=== PATIENT | female | born 1960 | race Two or more races ===

== ENCOUNTER → 2018-12-04 | Outpatient (CLI) | LOC: YHH 15:33 ==

== ENCOUNTER 2019-11-16 23:14 | Inpatient (IN) | payer OTHER ==
[2019-11-16 23:46] VITALS: BMI 26.2
[2019-11-17] MEDS ORDERED: LACTATED RINGERS SOLUTION 1000 ML INFUS.BAG IV ONE (00:40)
--- NOTE | 2019-11-17 01:19 | PDOC ---
History of Present Illness - General Chief Complaint: Rectal Bleed Stated Complaint: HEMMORHAGE Time Seen by Provider: 11/17/19 00:19 History Source: Patient Exam Limitations: No Limitations - History of Present Illness Initial Comments: 11/17/19 01:18 HPI: This is a 59 y/o male on ASA/Plavix with a PMH of HIV (undetectable), rectal cancer (s/p radiation/chemo 2016), and a CVA with left carotid endarterectomy on October 20 presenting to the ED due to rectal bleeding that began 3 hours ago. He was laying in bed when he felt something wet underneath him. He got up to go to the bathroom, and saw blood dripping down his leg. He said that he lost about a cup of blood prior to coming to the ED. He had a similar episode on November 01 where he had large amounts of bleeding which stopped on it's own. He never followed up with anyone about it. The patient denies any lightheadedness, palpations, chest pain, SOB, abdominal pain. ROS: GENERAL/CONSTITUTIONAL: No fever/chills. No weakness. HEAD, EYES, EARS, NOSE AND THROAT: No change in vision. No blurry vision. CARDIOVASCULAR: No chest pain or shortness of breath. RESPIRATORY: No cough, wheezing, or hemoptysis. GASTROINTESTINAL: No nausea, vomiting Yes active bright red blood per rectum MUSCULOSKELETAL: No joint or muscle swelling or pain. No neck or back pain. NEUROLOGIC: No headache, vertigo, loss of consciousness, or change in strength/sensation. HEMATOLOGIC/LYMPHATIC: On ASA and Plavix ALLERGIC/IMMUNOLOGIC: No hives or skin allergy. PMH: HIV (undetectable), Rectal cancer (s/p radiation/chemo 2016), CVA (October 2019) PSx: Left carotid endarterectomy ([facility], October 2019) Meds: See nurse note Allergies: KNDA PE: GENERAL: Awake, alert, and fully oriented, in no acute distress. Laying in bed, able to speak in full sentences. Non-toxic appearing. HEAD: No signs of trauma EYES: PERRLA, EOMI, sclera anicteric ENT: Moist mucosa NECK: Normal ROM, supple, no lymphadenopathy, JVD, or masses LUNGS: Breath sounds equal, clear to auscultation bilaterally. No wheezes, and no crackles HEART: Regular rate and rhythm, normal S1 and S2, no murmurs, rubs or gallops. Capillary refill < 3 seconds. ABDOMEN: Soft, nontender, normoactive bowel sounds. No guarding, no rebound. No masses EXTREMITIES: Normal range of motion, no edema. No clubbing or cyanosis. NEUROLOGICAL: Cranial nerves II through XII grossly intact. Slurred speech (residual from stroke) RECTAL: No obvious masses or lesions. Not actively bleeding. Shaq underneath patient with bright red blood and clots MDM: This is a 59 y/o male on ASA/Plavix with a PMH of HIV (undetectable), rectal cancer (s/p radiation/chemo 2016), and a CVA with left carotid endarterectomy on October 20 presenting to the ED due to rectal bleeding that began 3 hours ago. - Denies inciting traumatic event - Patient is anti-coagulated with Plavix and ASA - Patient is hemodynamically stable, BP 145/91 - AAOx4 - Not currently with active bleeding from rectum - Will check labs, transfuse if needed - Pt will need admit - CBC - CMP - PT/INR - Type and screen - EKG - 1L fluids 11/17/19 02:34 - Hb 10.5 - INR 1.2 11/17/19 02:41 - Patient remained hemodynamically stable during ED visit. No transfusion necessary at this time - Pt admitted to med/surg Past History - Medical History Allergies/Adverse Reactions: Allergies Allergy/AdvReac Type Severity Reaction Status Date / Time sulfamethoxazole AdvReac Itching Verified 11/17/19 05:58 [From Bactrim] trimethoprim [From Bactrim] AdvReac Itching Verified 11/17/19 05:58 Home Medications: Ambulatory Orders Aspirin [ASA -] 81 mg PO DAILY 11/17/19 Clopidogrel Bisulfate [Plavix] 75 mg PO DAILY 11/17/19 Docusate Sodium [Colace] 100 mg PO DAILY 11/17/19 Elviteg/Cob/Emtri/Tenof Alafen [Genvoya (Non-Formulary)] 1 each PO DAILY 11/01 09/20 Sennosides [Senna] 8.6 mg PO HS 11/17/19 - Psycho-Social/Smoking History Smoking History: Unknown if ever smoked *Physical Exam - Vital Signs Last Vital Signs Temp Pulse Resp BP Pulse Ox 99.5 F 113 H 20 145/91 98 11/16/19 23:35 11/16/19 23:35 11/16/19 23:35 11/16/19 23:35 11/16/19 23:35 Heart Score/ECG Review - ECG Intrepretation Comment:: 11/17/19 01:[address] elevations or T-wave inversions Vent rate 95bpm, MA interval 124ms, QRS 124ms, Prolonged QT/QTc 400/502ms PVCs 11/17/19 02:00 ED Treatment Course - LABORATORY CBC & Chemistry Diagram: 11/17/19 09:08 11/17/19 09:08 Discharge - Discharge Information Problems reviewed: Yes Clinical Impression/Diagnosis: Rectal hemorrhage Condition: Stable - Admission Yes - Follow up/Referral - Patient Discharge Instructions - Post Discharge Activity
--- NOTE | 2019-11-17 01:41 | PDOC ---
Documentation entered by Gregorio Vieyra SCRIBE, acting as scribe for Jason Zepeda MD. Jason Zepeda MD: This documentation has been prepared by the Azalia santos Xhesika, SCRIBE, under my direction and personally reviewed by me in its entirety. I confirm that the documentation accurately reflects all work, treatment, procedures, and medical decision making performed by me. Attending Attestation - Resident Resident Name: Brit Todd - ED Attending Attestation I have performed the following: I have examined & evaluated the patient, The case was reviewed & discussed with the resident, I agree w/resident's findings & plan, Exceptions are as noted - HPI HPI: 11/17/19 01:24 The patient is a 59 year old male with a significant PMH of HIV (VL undetectable), rectal cancer (s/p radiation/chemo 2016), and a CVA with left carotid endarterectomy(10/21/19) who presents to the emergency department for rectal bleeding. Pt states at around 10:30PM, he went to bed, "felt something wet underneath him," went to the restroom and noticed blood dripping down his leg. Pt states he lost one cup of blood. Pt states he had a similar episode on 11/02/19 but symptoms resolved on their own. Pt states he is on ASA/Plavix. The patient denies chest pain, shortness of breath, headache and dizziness. Denies fever, chills, cough, nausea, vomiting, diarrhea and constipation. Denies dysuria, frequency, urgency and hematuria. Allergies: NKDA - Physicial Exam PE: 11/17/19 01:42 See resident exam - Medical Decision Making 11/17/19 01:42 59 M with hematochezia, on ASA and plavix. - Labs, coags, T&S - Transfuse if needed - Admit Discharge - Discharge Information Problems reviewed: Yes Clinical Impression/Diagnosis: Rectal hemorrhage Condition: Stable - Follow up/Referral - Patient Discharge Instructions - Post Discharge Activity
[2019-11-17 01:42] LABS: BASO % 0.6 % (0-2.0); EOS % 0.1 % (0-4.5); HEMATOCRIT 31.4 % (35.4-49); HEMOGLOBIN 10.5 GM/dL (11.7-16.9); LYMPH % 16.7 % (8-40); MCH 32.2 pg (25.7-33.7); MCHC 33.3 g/dl (32.0-35.9); MEAN CELL VOLUME 96.8 fl (80-96); MEAN PLT VOLUME 9.2 fl (7.5-11.1); MONO % 6.6 % (3.8-10.2); PLATELET COUNT 222 K/MM3 (134-434); RBC 3.24 M/mm3 (4.00-5.60); RDW 13.8 % (11.9-15.9); WHITE BLOOD COUNT 9.1 K/mm3 (4.0-10.0)
[2019-11-17 01:50] LABS: INR 1.2 (0.83-1.09); PROTHROMBIN TIME (PATIENT) 14.2 SEC (9.7-13.0)
[2019-11-17 01:57] LABS: ALBUMIN 3.3 g/dl (3.4-5.0); BILIRUBIN,TOTAL 0.3 mg/dL (0.2-1); BLOOD UREA NITROGEN 15.6 mg/dL (7-18); CALCIUM 9.1 mg/dL (8.5-10.1); POTASSIUM 3.5 mmol/L (3.5-5.1)
[2019-11-17 02:32] LABS: MAGNESIUM 1.9 mg/dL (1.8-2.4)
--- NOTE | 2019-11-17 03:48 | PN ---
Teaching Attending Note Name of Resident: Rivera Feliz ATTENDING PHYSICIAN STATEMENT I saw and evaluated the patient. I reviewed the resident's note and discussed the case with the resident. I agree with the resident's findings and plan as documented. SUBJECTIVE: Patient is a 59 year old man with a PMH of HIV disease (undetectable viral load), Rectal cancer (s/p radiation/chemotherapy 2016), Recent right hip replacement, CVA (residual slurred speech; on Aspirin/Plavix) and Left carotid endarterectomy on October 20 presenting to the ER due to rectal bleeding that began 3 hours prior to arrival. He was laying in bed when he felt something wet underneath him. He got up to go to the bathroom, and saw blood dripping down his leg. He said that he lost about a cup of blood prior to coming to the ED. He had a similar episode on November 01 where he had large amounts of bleeding which stopped on it's own. He never followed up with anyone about it. On HAART but does'nt remember the name. Patient denies chest pain, shortness of breath, abdominal pain, headache, palpitations, dizziness, fever, chills, nausea, vomiting, diarrhea, constipation, dysuria, frequency, urgency, melena, hematochezia or hematuria. Denies alcohol, tobacco or illicit drug use. No sick contacts or recent travels. Family history of lung cancer in sister, prostate cancer in father and DM/HLD in mother. OBJECTIVE: Alert Vital Signs Period Temp Pulse Resp BP Sys/Mercer Pulse Ox Last 24 Hr 99.5 F 113 20 145/91 98 HEENT: No Jaundice, eye redness or discharge, PERRLA, EOMI. Normocephalic, atraumatic. External ears are normal and hearing is grossly intact. No nasal discharge. Neck: Supple, nontender. No palpable adenopathy or thyromegaly. No JVD Chest: Good effort. Clear to auscultation and percussion. Heart: Regular. No S3, rub or murmur Abdomen: Not distended, soft, nontender and no HSM. No rebound or guarding. Normal bowel sounds. Ext: Peripheral pulses intact. No leg edema. Skin: Warm and dry. No petechiae, rash or ecchymosis. Neuro: Alert. Oriented x3. CN 2-12 grossly intact. Sensation grossly intact in all four extremities and DTR are symmetric. Psych: Appropriate mood and affect. Good insight. Abnormal Lab Results 11/17/19 11/17/19 11/17/19 01:20 01:20 01:20 RBC 3.24 L Hgb 10.5 L Hct 31.4 L MCV 96.8 H PT with INR 14.20 H INR 1.20 H Random Glucose 123 H AST 11 L ALT 12 L Albumin 3.3 L ASSESSMENT AND PLAN: 1. Rectal bleeding - Will hold Aspirin/Plavix, keep him NPO, send blood for type and cross, monitor HCT q 4 hours, get iron studies, B12/folate levels, CT abdomen/pelvis, transfuse when clinically indicated, give IV Protonix and consu lt GI. CXR and urinalysis pending. Consult ID for HIV care. EKG shows NSR at 95/minute and QTc 502, PVCs with no ischemic ST-T wave changes. Will avoid drugs that may prolong QTc. Viral testing for COVID-19 ordered and patient placed on airborne, droplet and contact isolation. During the day will contact his PCP to get his medication list including HAART. Will continue comprehensive care for all of patients comorbid conditions including HAART for HIV disease. 2. Hypoalbuminemia - Possibly due to combined effects of malnutrition and inflammation associated with comorbid conditions. Will ensure adequate dietary protein intake and also consult security assessor. Urinalysis pending. 3. DVT prophylaxis - SCD. 4. Advance directives - Full code
--- NOTE | 2019-11-17 05:47 | HP ---
CHIEF COMPLAINT: rectal bleeding PCP: HISTORY OF PRESENT ILLNESS: 59 YO M PMH rectal cancer (s/p chemo, radiation 2017), HIV (undetectable), and CVA hx on ASA and plavix s/p L carotid endartectomy presents with rectal bright red bleeding that started 3 hours before came to the ED. Pt was laying in bed last night, when he began to feel that something was underneath him, He stood up to use the bathroom and observed blood dripping down his leg. The bleeding was constant for 2 hours, which prompted the pt to come to the ED to be evaluated. About 1 cup of blood. Denied abd pain, N/V at the time. Bleeding worsened with movement and heavy breathing. This was not the first time the patient had rectal bleeding. On 11/02/2019, pt had continuous rectal bleeding that continued for 15 minutes and then spontaneously resolved. No aggravating/improving factors. Denied abd pain, N/V at the time. He did not seek medical attention at that time because the bleeding had stopped spontaneously. On medication for HIV, but doesn't recall the name. Pt denied fevers, chills, SOB, CP, ER course was notable for: (1) Hgb/Hct 10.5/31.4 (2) MCV 96.8 QTC: (3) EKG: NSR, occasional premature ventricular complexes. RBBB, QTC 502 Recent Travel: denies PAST MEDICAL HISTORY: PMH rectal cancer (s/p chemo, radiation 2016), HIV (undetectable), and CVA hx on ASA and plavix. After his R hip replacement on 10/09/2019, he was found to have a stroke on 10/17 and started on plavix and aspirin together on 10/18. The L carotid endarterctomy was performed on 10/20. 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 Allergies bactrim (hives, throat closing) Family HX sister lung cancer father prostate cancer mother DM HOME MEDICATIONS: REVIEW OF SYSTEMS CONSTITUTIONAL: Absent: fever, chills, diaphoresis, generalized weakness, malaise, loss of appetite, weight change HEENT: Absent: rhinorrhea, nasal congestion, throat pain, throat swelling, difficulty swallowing, mouth swelling, ear pain, eye pain, visual changes CARDIOVASCULAR: Absent: chest pain, syncope, palpitations, irregular heart rate, lightheadedness, peripheral edema RESPIRATORY: Absent: cough, shortness of breath, dyspnea with exertion, orthopnea, wheezing, stridor, hemoptysis GASTROINTESTINAL: Absent: abdominal pain, abdominal distension, nausea, vomiting, diarrhea, constipation, melena, hematochezia GENITOURINARY: Absent: dysuria, frequency, urgency, hesitancy, hematuria, flank pain, genital pain MUSCULOSKELETAL: Absent: myalgia, arthralgia, joint swelling, back pain, neck pain SKIN: Absent: rash, itching, pallor HEMATOLOGIC/IMMUNOLOGIC: rectal bleed. Absent: easy bleeding, easy bruising, lymphadenopathy, frequent infections ENDOCRINE: Absent: unexplained weight gain, unexplained weight loss, heat intolerance, cold intolerance NEUROLOGIC: Absent: headache, focal weakness or paresthesias, dizziness, unsteady gait, seizure, mental status changes, bladder or bowel incontinence PSYCHIATRIC: Absent: anxiety, depression, suicidal or homicidal ideation, hallucinations. PHYSICAL EXAMINATION Vital Signs - 24 hr 11/16/19 11/17/19 23:35 04:28 Temperature 99.5 F Pulse Rate 113 H Pulse Rate [ 88 Radial] Respiratory 20 17 Rate Blood Pressure 145/91 Blood Pressure 138/86 [Arm] O2 Sat by Pulse 98 98 Oximetry (%) GENERAL: Awake, alert, and fully oriented, in no acute distress. HEAD: Normal with no signs of trauma. EYES: Pupils equal, round and reactive to light, extraocular movements intact, sclera anicteric, conjunctiva clear. No lid lag. EARS, NOSE, THROAT: Ears normal, nares patent, oropharynx clear without exudates. Moist mucous membranes. NECK: Normal range of motion, supple without lymphadenopathy, JVD, or masses. LUNGS: Breath sounds equal, clear to auscultation bilaterally. No wheezes, and no crackles. No accessory muscle use. HEART: Regular rate and rhythm, normal S1 and S2 without murmur, rub or gallop. ABDOMEN: Soft, nontender, not distended, normoactive bowel sounds, Pt no longer actively bleeding during exam. small amount of blood of glove after removal. no masses/hemorrhoids palpated on KHADAR. Decreased ROM R hip 2/2 pain from R hip replacement UPPER EXTREMITIES: 2+ pulses, warm, well-perfused. No cyanosis. No clubbing. No peripheral edema. LOWER EXTREMITIES: 2+ pulses, warm, well-perfused. No calf tenderness. No peripheral edema. NEUROLOGICAL: Cranial nerves II-XII intact. Normal speech. slurred speech. PSYCHIATRIC: Cooperative. Good eye contact. Appropriate mood and affect. Laboratory Results - last 24 hr 11/17/19 11/17/19 11/17/19 01:20 01:20 01:20 WBC 9.1 RBC 3.24 L Hgb 10.5 L Hct 31.4 L MCV 96.8 H MCH 32.2 MCHC 33.3 RDW 13.8 Plt Count 222 MPV 9.2 Absolute Neuts (auto) 6.9 Neutrophils % 76.0 Lymphocytes % 16.7 Monocytes % 6.6 Eosinophils % 0.1 Basophils % 0.6 Nucleated RBC % 0 PT with INR 14.20 H INR 1.20 H Sodium 141 Potassium 3.5 Chloride 106 Carbon Dioxide 27 Anion Gap 9 BUN 15.6 Creatinine 1.0 Est GFR (CKD-EPI)AfAm 94.39 Est GFR (CKD-EPI)NonAf 81.44 Random Glucose 123 H Calcium 9.1 Magnesium 1.9 Total Bilirubin 0.3 AST 11 L ALT 12 L Alkaline Phosphatase 113 Total Protein 8.0 Albumin 3.3 L Blood Type Antibody Screen 11/17/19 01:20 WBC RBC Hgb Hct MCV MCH MCHC RDW Plt Count MPV Absolute Neuts (auto) Neutrophils % Lymphocytes % Monocytes % Eosinophils % Basophils % Nucleated RBC % PT with INR INR Sodium Potassium Chloride Carbon Dioxide Anion Gap BUN Creatinine Est GFR (CKD-EPI)AfAm Est GFR (CKD-EPI)NonAf Random Glucose Calcium Magnesium Total Bilirubin AST ALT Alkaline Phosphatase Total Protein Albumin Blood Type O POSITIVE Antibody Screen Negative ASSESSMENT/PLAN: 59 YO M PMH rectal cancer (s/p chemo, radiation 2017), HIV (undetectable), and CVA hx on ASA and plavix s/p L carotid endartectomy presents with rectal bleeding that started 3 hours before came to the ED. #Rectal bleeding -hold home rx: Plavix aspirin -IV protonoix -type and screen -NPO if procedure is needed in AM -f/u repeat Hct/Hgb -f/u Iron studies, B12/folate -CTAP with IV contrast -f/u GI consult #HIV (undetectable) -f/u ID Consult -reconcile medications with patient's pharmacy for antiretroviral regiment #Prolonged QTC QTC: 502 -Avoid QTC prolonging agents #h/o CVA -hold home rx Plavix aspiri 2/2 rectal bleeding #DVT SCD #FEN LR monitor lytes NPO if procedure needed in AM #DISPO maintain med surg Family Medical History Family History: As Documented Visit type - Emergency Visit Emergency Visit: Yes ED Registration Date: 11/17/19 Care time: The patient presented to the Emergency Department on the above date and was hospitalized for further evaluation of their emergent condition. - New Patient This patient is new to me today: Yes Date on this admission: 11/17/19 - Critical Care Critical Care patient: No ATTENDING PHYSICIAN STATEMENT I saw and evaluated the patient. I reviewed the resident's note and discussed the case with the resident. I agree with the resident's findings and plan as documented. SUBJECTIVE: OBJECTIVE: ASSESSMENT AND PLAN:
[2019-11-17 08:17] VITALS: TEMP 98.6
[2019-11-17 09:36] LABS: HEMATOCRIT 27.7 % (35.4-49); HEMOGLOBIN 9.2 GM/dL (11.7-16.9); MCH 31.8 pg (25.7-33.7); MCHC 33.1 g/dl (32.0-35.9); MEAN PLT VOLUME 8.7 fl (7.5-11.1); PLATELET COUNT 210 K/MM3 (134-434); RBC 2.88 M/mm3 (4.00-5.60); RDW 13.4 % (11.9-15.9); WHITE BLOOD COUNT 5.7 K/mm3 (4.0-10.0)
[2019-11-17] MEDS ORDERED: PANTOPRAZOLE SODIUM 40 MG VIAL IVPUSH SCH ×2 (10:00)
[2019-11-17] MEDS ORDERED: CLOPIDOGREL BISULFATE 75 MG TABLET (FP) PO SCH (10:00)
[2019-11-17 10:14] LABS: BLOOD UREA NITROGEN 13.3 mg/dL (7-18); CALCIUM 8.8 mg/dL (8.5-10.1); CREATININE 0.9 mg/dL (0.55-1.3); MAGNESIUM 1.7 mg/dL (1.8-2.4); PHOSPHOROUS 3.7 mg/dL (2.5-4.9); POTASSIUM 3.7 mmol/L (3.5-5.1)
[2019-11-17 10:15] LABS: IRON SERUM 74 ug/dL (50-175); TOTAL IRON BINDING CAPACITY 250 ug/dL (250-450)
--- NOTE | 2019-11-17 10:20 | CON.GI ---
Consult Consult Specialty:: GI Referred by:: Hospitalist Service - Dr Tamez Reason for Consultation:: Rectal bleeding - History of Present Illness Chief Complaint: Rectal bleeding History of Present Illness: 59 y.o. M admitted with rectal bleeding since last evening. He states he had a right hip replacement on October 08. On October 20 he developed numbness and weakness of his R. arm and was diagnosed with a CVA. He had a left carotid endarterectomy on October 27 at [facility] and has been on ASA and Plavix. Please note, the dates I list here are different from the dates given to Dr Feliz, but these are the dates he gave me now. His past GI history includes radiation in 2017 for rectal cancer, with local recurrence managed surgically or endoscopically (not clear). He says his last sigmoidoscopy was in August. Treatment of the rectal cancer was at [facility]. - History Source History Provided By: Patient Limitations to Obtaining History: No Limitations - Past Medical History CUSTOMER SUPPORT EXECUTIVE: Yes: CVA Gastrointestinal: Yes: Cancer Infectious Disease: Yes: HIV - Past Surgical History Past Surgical History: Yes: Carotid Endarterectomy - Smoking History Smoking history: Unknown if ever smoked Home Medications - Allergies Allergies/Adverse Reactions: Allergies Allergy/AdvReac Type Severity Reaction Status Date / Time sulfamethoxazole AdvReac Itching Verified 11/17/19 05:58 [From Bactrim] trimethoprim [From Bactrim] AdvReac Itching Verified 11/17/19 05:58 - Home Medications Home Medications: Ambulatory Orders Aspirin [ASA -] 81 mg PO DAILY 11/17/19 Clopidogrel Bisulfate [Plavix] 75 mg PO DAILY 11/17/19 Docusate Sodium [Colace] 100 mg PO DAILY 11/17/19 Elviteg/Cob/Emtri/Tenof Alafen [Genvoya (Non-Formulary)] 1 each PO DAILY 11/17/19 Sennosides [Senna] 8.6 mg PO HS 11/17/19 Physical Exam-GI Vital Signs: Vital Signs Temperature 98.6 F 11/17/19 08:15 Pulse Rate 93 H 11/17/19 08:15 Respiratory Rate 17 11/17/19 08:15 Blood Pressure 138/81 11/17/19 08:15 O2 Sat by Pulse Oximetry (%) 100 11/17/19 08:15 Constitutional: Yes: Well Nourished Neck: Yes: Other (bandaid on left side of neck) Gastrointestinal Inspection: Yes: WNL ...Rectal Exam: Yes: Other (Anal canal irregular, blood in diaper, no stool.) Labs: CBC, BMP 11/17/19 09:08 11/17/19 09:08 INR, PTT INR 1.20 (0.83-1.09) H 11/17/19 01:20 Problem List - Problems (1) Rectal hemorrhage Code(s): K62.5 - HEMORRHAGE OF ANUS AND RECTUM Assessment/Plan Rectal bleeding, probably a combination of factors: 1) likely abnormal anorectal mucosa after radiation 2) dual antiplatelet therapy His Hgb is continuing to drop. His endarterectomy was approximately 3 weeks ago. I believe he needs to be in a monitored unit, preferably an institution with neurosurgical expertise. I discussed this with Dr Tamez.
[2019-11-17 10:29] LABS: BILIRUBIN,TOTAL 0.5 mg/dL (0.2-1)
[2019-11-17] MEDS ORDERED: MAGNESIUM 1GM/D5W 100ML - 100 ML IVPB IVPB ONE (10:30)
--- NOTE | 2019-11-17 12:56 | DS ---
Physical Exam: SUBJECTIVE: Patient seen and examined. He reports some rectal bleeding when coughing. He denies f/c/n/v/d. Last normal BM was yesterday morning. OBJECTIVE: Vital Signs Period Temp Pulse Resp BP Sys/Mercer Pulse Ox Last 24 Hr 98.6 F-99.5 F 86-113 17-20 119-145/79-91 97-100 PHYSICAL EXAM GENERAL: The patient is awake, alert, and fully oriented, in no acute distress. HEAD: Normal with no signs of trauma. EYES: PERRL, extraocular movements intact, conjunctiva clear. ENT: Ears normal, nares patent, moist mucous membranes. NECK: Trachea midline, full range of motion. LUNGS: Clear to auscultation bilaterally, no wheezes, no crackles. HEART: Regular rate and rhythm, no murmur appreciated. ABDOMEN: Soft, nontender, nondistended, normoactive bowel sounds. EXTREMITIES: Warm, well-perfused, no edema. NEUROLOGICAL: Cranial nerves II through XII grossly intact. Normal speech. PSYCH: Normal mood, normal affect. SKIN: Warm, dry, normal turgor. LABS Laboratory Results - last 24 hr 11/17/19 11/17/19 11/17/19 01:20 01:20 01:20 WBC 9.1 RBC 3.24 L Hgb 10.5 L Hct 31.4 L MCV 96.8 H MCH 32.2 MCHC 33.3 RDW 13.8 Plt Count 222 MPV 9.2 Absolute Neuts (auto) 6.9 Neutrophils % 76.0 Lymphocytes % 16.7 Monocytes % 6.6 Eosinophils % 0.1 Basophils % 0.6 Nucleated RBC % 0 PT with INR 14.20 H INR 1.20 H Sodium 141 Potassium 3.5 Chloride 106 Carbon Dioxide 27 Anion Gap 9 BUN 15.6 Creatinine 1.0 Est GFR (CKD-EPI)AfAm 94.39 Est GFR (CKD-EPI)NonAf 81.44 Random Glucose 123 H Calcium 9.1 Phosphorus Magnesium 1.9 Iron TIBC Iron Saturation Unsaturated IBC Total Bilirubin 0.3 AST 11 L ALT 12 L Alkaline Phosphatase 113 Total Protein 8.0 Albumin 3.3 L Vitamin B12 Serum Folate Blood Type Antibody Screen Crossmatch 11/17/19 11/17/19 11/17/19 01:20 09:08 09:08 WBC 5.7 RBC 2.88 L Hgb 9.2 L Hct 27.7 L MCV 96.0 MCH 31.8 MCHC 33.1 RDW 13.4 Plt Count 210 MPV 8.7 Absolute Neuts (auto) Neutrophils % Lymphocytes % Monocytes % Eosinophils % Basophils % Nucleated RBC % PT with INR INR Sodium 143 Potassium 3.7 Chloride 107 Carbon Dioxide 27 Anion Gap 8 BUN 13.3 Creatinine 0.9 Est GFR (CKD-EPI)AfAm 107.22 Est GFR (CKD-EPI)NonAf 92.51 Random Glucose 108 H Calcium 8.8 Phosphorus 3.7 Magnesium 1.7 L Iron TIBC Iron Saturation Unsaturated IBC Total Bilirubin 0.5 AST 11 L ALT 13 Alkaline Phosphatase 95 Total Protein 7.0 Albumin 3.0 L Vitamin B12 Serum Folate 13 Blood Type O POSITIVE Antibody Screen Negative Crossmatch 11/17/19 11/17/19 09:08 09:08 WBC RBC Hgb Hct MCV MCH MCHC RDW Plt Count MPV Absolute Neuts (auto) Neutrophils % Lymphocytes % Monocytes % Eosinophils % Basophils % Nucleated RBC % PT with INR INR Sodium Potassium Chloride Carbon Dioxide Anion Gap BUN Creatinine Est GFR (CKD-EPI)AfAm Est GFR (CKD-EPI)NonAf Random Glucose Calcium Phosphorus Magnesium Iron 74 TIBC 250 Iron Saturation 29 Unsaturated IBC 176 L Total Bilirubin AST ALT Alkaline Phosphatase Total Protein Albumin Vitamin B12 721 Serum Folate Blood Type O POSITIVE Antibody Screen Negative Crossmatch See Detail HOSPITAL COURSE: Pt is a 59y/o male with PMH rectal cancer (s/p chemo, radiation 2016), HIV (undetectable), CVA (October 20 approx) on ASA and plavix s/p L carotid e ndartectomy, and left hip surgery (October 01 approx) presents with rectal bright red bleeding that started 3 hours before came to the ED. He reports initial rectal bleeding was on November 01 and was brief. Before presenting to ED, he lost a cup of blood. In ED, pt had no blood on rectal exam. Hb was stable at 10.5. EKG showed no acute ST changes, but was in sinus and QTc was prolonged 502. Pt was made NPO except meds. He was mildy hypomagnesemic at 1.7 so supplemented. GI evaluated patient and suggested transfer. Also, his Hb dropped to 9.2 in 8 hours, so it was determined that the patient should be transferred for higher level of care. PRBCs were initially ordered but not administered because EMS arrived and patient is stable enough for transfer and is asymptomatic at this time. Patient is in understanding of need for higher level of care and agrees to transfer. Date of Admission:11/17/19 Date of Discharge: 11/17/19 Minutes to complete discharge: 35 <BridgettecandieMarcia - Last Filed: 11/17/19 13:14> Physical Exam: SUBJECTIVE: Patient seen and examined Patient was seen and examined. Stated that had an endarterectomy in October 2019, and hip replacement in october 2019 aS WELL , and is placed on blood thinner; home injectables to avoid DVT. Also patient has a rectal ca s/p chemo and RTx 2016. he had a similar episode 2 weeks ago but did not come to ED. since stopped the bleeding , but last night his girlfriend made him come to ED. since started to rebleed. OBJECTIVE: Vital Signs Temperature 98.6 F 11/17/19 08:15 Pulse Rate 93 H 11/17/19 08:15 Respiratory Rate 17 11/17/19 08:15 Blood Pressure 138/81 11/17/19 08:15 O2 Sat by Pulse Oximetry (%) 100 11/17/19 08:15 PHYSICAL EXAM: per resident's note LABS Laboratory Results - last 24 hr 11/17/19 11/17/19 11/17/19 01:20 01:20 01:20 WBC 9.1 RBC 3.24 L Hgb 10.5 L Hct 31.4 L MCV 96.8 H MCH 32.2 MCHC 33.3 RDW 13.8 Plt Count 222 MPV 9.2 Absolute Neuts (auto) 6.9 Neutrophils % 76.0 Lymphocytes % 16.7 Monocytes % 6.6 Eosinophils % 0.1 Basophils % 0.6 Nucleated RBC % 0 PT with INR 14.20 H INR 1.20 H Sodium 141 Potassium 3.5 Chloride 106 Carbon Dioxide 27 Anion Gap 9 BUN 15.6 Creatinine 1.0 Est GFR (CKD-EPI)AfAm 94.39 Est GFR (CKD-EPI)NonAf 81.44 Random Glucose 123 H Calcium 9.1 Phosphorus Magnesium 1.9 Iron TIBC Iron Saturation Unsaturated IBC Total Bilirubin 0.3 AST 11 L ALT 12 L Alkaline Phosphatase 113 Total Protein 8.0 Albumin 3.3 L Vitamin B12 Serum Folate Blood Type Antibody Screen Crossmatch 11/17/19 11/17/19 11/17/19 01:20 09:08 09:08 WBC 5.7 RBC 2.88 L Hgb 9.2 L Hct 27.7 L MCV 96.0 MCH 31.8 MCHC 33.1 RDW 13.4 Plt Count 210 MPV 8.7 Absolute Neuts (auto) Neutrophils % Lymphocytes % Monocytes % Eosinophils % Basophils % Nucleated RBC % PT with INR INR Sodium 143 Potassium 3.7 Chloride 107 Carbon Dioxide 27 Anion Gap 8 BUN 13.3 Creatinine 0.9 Est GFR (CKD-EPI)AfAm 107.22 Est GFR (CKD-EPI)NonAf 92.51 Random Glucose 108 H Calcium 8.8 Phosphorus 3.7 Magnesium 1.7 L Iron TIBC Iron Saturation Unsaturated IBC Total Bilirubin 0.5 AST 11 L ALT 13 Alkaline Phosphatase 95 Total Protein 7.0 Albumin 3.0 L Vitamin B12 Serum Folate 13 Blood Type O POSITIVE Antibody Screen Negative Crossmatch 11/17/19 11/17/19 09:08 09:08 WBC RBC Hgb Hct MCV MCH MCHC RDW Plt Count MPV Absolute Neuts (auto) Neutrophils % Lymphocytes % Monocytes % Eosinophils % Basophils % Nucleated RBC % PT with INR INR Sodium Potassium Chloride Carbon Dioxide Anion Gap BUN Creatinine Est GFR (CKD-EPI)AfAm Est GFR (CKD-EPI)NonAf Random Glucose Calcium Phosphorus Magnesium Iron 74 TIBC 250 Iron Saturation 29 Unsaturated IBC 176 L Total Bilirubin AST ALT Alkaline Phosphatase Total Protein Albumin Vitamin B12 721 Serum Folate Blood Type O POSITIVE Antibody Screen Negative Crossmatch See Detail HOSPITAL COURSE: Date of Admission:11/17/19 Date of Discharge: 11/17/19 Transfer the patient to higher level of care #Acute rectal bleed with hx of rectal cancer ( s/p chemo and Rtx) on blood thinners at home, type and cross for 2 units and transfuse #Hx of CVAs #Hx of endarterectomy on aspirin and plavix, will hold aspirin for now( had it done at [facility]) #Hx of hip surgery at [facility] in 10/30 on blood thinner #hx of HIV stable patient was accepted by [facility], is being transferred , Dr Rodriguez evaluated the patient , wants the patient to be transferred out. <Michelle Tamez - Last Filed: 11/17/19 14:03> Discharge Summary Problems reviewed: Yes Current Active Problems Rectal hemorrhage (Acute) - Home Medications Comprehensive Discharge Medication List: Ambulatory Orders Aspirin [ASA -] 81 mg PO DAILY 11/17/19 Clopidogrel Bisulfate [Plavix] 75 mg PO DAILY 11/17/19 Docusate Sodium [Colace] 100 mg PO DAILY 11/17/19 Elviteg/Cob/Emtri/Tenof Alafen [Genvoya (Non-Formulary)] 1 each PO DAILY 11/17/19 Sennosides [Senna] 8.6 mg PO HS 11/17/19 <Marcia Michaud - Last Filed: 11/17/19 13:14> Current Active Problems Rectal hemorrhage (Acute) - Home Medications Comprehensive Discharge Medication List: Ambulatory Orders Aspirin [ASA -] 81 mg PO DAILY 11/17/19 Clopidogrel Bisulfate [Plavix] 75 mg PO DAILY 11/17/19 Docusate Sodium [Colace] 100 mg PO DAILY 11/17/19 Elviteg/Cob/Emtri/Tenof Alafen [Genvoya (Non-Formulary)] 1 each PO DAILY 11/17/19 Sennosides [Senna] 8.6 mg PO HS 11/17/19 <Michelle Tamez - Last Filed: 11/17/19 14:03> Reason For Visit: GASTROINTESTINAL HEMORRHAGE Condition: Stable - Instructions Referrals: Lyubov Ayoub MD [Primary Care Provider] - Disposition: TRANSFER ACUTE CARE/OTHER HOSP This patient is new to me today: Yes Date on this admission: 11/17/19 Emergency Visit: Yes ED Registration Date: 11/17/19 Care time: The patient presented to the Emergency Department on the above date and was hospitalized for further evaluation of their emergent condition. Critical Care patient: No - Discharge Referral Referred to [facility] Med P.C[facility] No <Marcia Michaud - Last Filed: 11/17/19 13:14> ATTENDING PHYSICIAN STATEMENT I saw and evaluated the patient. I reviewed the resident's note and discussed the case with the resident. I agree with the resident's findings and plan as documented. SUBJECTIVE: OBJECTIVE: ASSESSMENT AND PLAN: <Marcia Michaud - Last Filed: 11/17/19 13:14> ATTENDING PHYSICIAN STATEMENT I saw and evaluated the patient. I reviewed the resident's note and discussed the case with the resident. I agree with the resident's findings and plan as documented. SUBJECTIVE: OBJECTIVE: ASSESSMENT AND PLAN: <Michelle Tamez - Last Filed: 11/17/19 14:03>
[2019-11-17 14:54] VITALS: BP 135/86; PULSE 83
--- NOTE | 2019-11-17 18:07 | EKG ---
Test Reason : Blood Pressure : / mmHG Vent. Rate : 095 BPM Atrial Rate : 095 BPM P-R Int : 124 ms QRS Dur : 124 ms QT Int : 400 ms P-R-T Axes : 075 009 040 degrees QTc Int : 502 ms SINUS RHYTHM WITH OCCASIONAL PREMATURE VENTRICULAR COMPLEXES BIATRIAL ENLARGEMENT RIGHT BUNDLE BRANCH BLOCK ABNORMAL ECG NO PREVIOUS ECGS AVAILABLE Confirmed by MD REYES MOYSES ([id number]) on 11/17/2019 6:07:26 PM Referred By: Confirmed By:MIKE REYES MD
== END 2019-11-17 15:09 | disposition short-term general hospital (02) | DRG 253 ==
LOC: JER 23:14 → EDSEX 23:14 → JERBED 11-17 01:56 → J7W 11-17 09:46
PROVIDERS: ADMIT Internal Medicine; ATTEND Internal Medicine
DX: K62.5 Hemorrhage of anus and rectum (principal); Z21 Asymptomatic human immunodeficiency virus [HIV] infection status; I69.328 Other speech and language deficits following cerebral infarction; Z96.641 Presence of right artificial hip joint; Z68.26 Body mass index [BMI] 26.0-26.9, adult; E88.09 Other disorders of plasma-protein metabolism, not elsewhere classified; I45.10 Unspecified right bundle-branch block; T45.515A Adverse effect of anticoagulants, initial encounter; R94.31 Abnormal electrocardiogram [ECG] [EKG]; R71.0 Precipitous drop in hematocrit; Z85.048 Personal history of other malignant neoplasm of rectum, rectosigmoid junction, and anus; Z79.01 Long term (current) use of anticoagulants
CPT/HCPCS: 36415; 71045-TC-FY; 80053; 82607; 82746; 83540; 83550; 83735; 84100; 85025; 85027; 85610; 86850; 86900; 86901; 86922; 93005; 93010; 99285-25; U0003

== ENCOUNTER → 2021-08-06 | Day surgery (SDC) | payer OTHER ==
[2021-08-04 13:08] VITALS: BMI 28.7
[~2021-08-06] MED LIST: BUPIVACAINE HCL/PF 0.75% 10 ML VIAL ONE; DEXAMETHASONE SOD PHOSPHATE 10 MG/1 ML VIAL ONE; LIDOCAINE HCL/PF 1% SDV 5ML VIAL ONE
== END | disposition home or self-care (01) ==
LOC: JASU-SURG 04:18
PROVIDERS: ATTEND Pain Medicine Pain Medicine
DX: Z53.8 Procedure and treatment not carried out for other reasons (principal)
CPT/HCPCS: J1100

== ENCOUNTER 2022-02-04 07:05 | Day surgery (SDC) | payer OTHER ==
[2022-02-02 11:14] VITALS: BMI 26.8
[2022-02-04] MEDS ORDERED: oxyCODONE HCL 5 MG TABLET PO PRN (12:21)
[2022-02-04] MEDS ORDERED: ONDANSETRON 4 MG/2 ML VIAL IVPUSH PRN (12:21)
[2022-02-04] MEDS ORDERED: LACTATED RINGERS SOLUTION 1,000 ML IV SCH (12:30)
[2022-02-04] MEDS ORDERED: BUPIVACAINE HCL/EPINEPHRINE/PF 30 ML VIAL IJ ONE (13:00)
[2022-02-04] MEDS ORDERED: PROPOFOL 20 ML ONE (13:33)
[2022-02-04] MEDS ORDERED: MIDAZOLAM HCL 2 MG/2 ML SINGLE DOSE VIAL ONE (13:33)
[2022-02-04] MEDS ORDERED: ROPIVACAINE HCL 0.5% 30ML VIAL ONE (13:44)
[2022-02-04] MEDS ORDERED: ONDANSETRON 4 MG/2 ML VIAL ONE (14:03)
[2022-02-04] MEDS ORDERED: ceFAZolin SODIUM 1 GM VIAL ONE (14:03)
[2022-02-04] MEDS ORDERED: DEXAMETHASONE SOD PHOSPHATE 4 MG/1 ML VIAL ONE (14:03)
[2022-02-04] MEDS ORDERED: KETOROLAC TROMETHAMINE 30 MG/1 ML VIAL ONE (15:34)
[2022-02-04] MEDS ORDERED: traMADol HCL 50 MG TABLET PO PRN (15:57)
[2022-02-04] MEDS ORDERED: NICOTINE POLACRILEX 4 MG GUM BUC PRN (15:57)
[2022-02-04] MEDS ORDERED: FENTANYL CITRATE/PF 50 MCG/ML VIAL ONE ×3 (16:04→16:38)
[2022-02-04] MEDS: ACETAMINOPHEN 1000 MG/100 ML BAG IVPB SCH (16:30)
[2022-02-04] MEDS: oxyCODONE HCL 5 MG TABLET PO PRN ×2 (19:24→22:13)
[2022-02-04] MEDS: GABAPENTIN 300 MG CAPSULE PO SCH (21:08)
[2022-02-04] MEDS ORDERED: KETOROLAC TROMETHAMINE 15 MG/ML VIAL IVPUSH PRN (22:00)
[2022-02-04] MEDS ORDERED: ATORVASTATIN CA 20 MG TABLET (FP) PO SCH (22:00)
[2022-02-04 22:20] VITALS: RESP 17
[2022-02-05] MEDS: ACETAMINOPHEN 1000 MG/100 ML BAG IVPB SCH ×2 (00:18→09:20)
[2022-02-05 06:19] VITALS: BP 136/75; PULSE 68; TEMP 97.9
[2022-02-05] MEDS: GABAPENTIN 300 MG CAPSULE PO SCH (06:33)
[2022-02-05] MEDS ORDERED: BICTEGRAV/EMTRICIT/TENOFOV (BIKTARVY) 50-200-25 MG TABLET PO SCH ×2 (07:00→09:45)
[2022-02-05] MEDS ORDERED: ASPIRIN 81 MG CHEWABLE TABLETS PO SCH (10:00)
[2022-02-05] MEDS ORDERED: SERTRALINE HCL 50 MG TABLET (FP) PO SCH (10:00)
[2022-02-05] MEDS ORDERED: busPIRone HCL 5 MG TABLET PO SCH (10:00)
[2022-02-05] MEDS ORDERED: LIDOCAINE TP SCH (10:00)
[2022-02-05] MEDS ORDERED: amLODIPine BESYLATE 10 MG TABLET (FP) PO SCH (10:00)
== END 2022-02-05 11:41 | disposition home or self-care (01) ==
LOC: FASU 07:05 → FASUSAT 07:05 → FM/S 18:07 → FASUSAT 02-05 11:39
PROVIDERS: ATTEND Orthopaedic Surgery
PROC: 0RBJ4ZZ Excision of Right Shoulder Joint, Percutaneous Endoscopic Approach (ICD-10-PCS; principal; 2022-02-04 14:33)
PROC: 0LS34ZZ Reposition Right Upper Arm Tendon, Percutaneous Endoscopic Approach (ICD-10-PCS; 2022-02-04 14:33)
PROC: 0RNJ4ZZ Release Right Shoulder Joint, Percutaneous Endoscopic Approach (ICD-10-PCS; 2022-02-04 14:33)
DX: S46.011D Strain of muscle(s) and tendon(s) of the rotator cuff of right shoulder, subsequent encounter (principal); M75.21 Bicipital tendinitis, right shoulder; M75.51 Bursitis of right shoulder; M65.821 Other synovitis and tenosynovitis, right upper arm; S43.431A Superior glenoid labrum lesion of right shoulder, initial encounter; M19.011 Primary osteoarthritis, right shoulder; M75.01 Adhesive capsulitis of right shoulder; X58.XXXD Exposure to other specified factors, subsequent encounter; X58.XXXA Exposure to other specified factors, initial encounter; Y93.9 Activity, unspecified; Y92.9 Unspecified place or not applicable
CPT/HCPCS: 73030-TC-RT-FY; 88304-TC; 94760